=== PATIENT | female | born 1945 | race Caucasian/White ===

== ENCOUNTER 2024-09-10 08:28 | Outpatient (CLI) | payer MEDICARE | END 2024-09-10 23:59 | disposition home or self-care (01) | LOC: VAS 08:28 | PROVIDERS: ATTEND Podiatrist Foot & Ankle Surgery | DX: M72.2 Plantar fascial fibromatosis (principal); G57.52 Tarsal tunnel syndrome, left lower limb; M76.72 Peroneal tendinitis, left leg; R60.0 Localized edema; M25.472 Effusion, left ankle; M76.822 Posterior tibial tendinitis, left leg; M79.672 Pain in left foot; M77.42 Metatarsalgia, left foot; M20.42 Other hammer toe(s) (acquired), left foot; M79.622 Pain in left upper arm; N39.0 Urinary tract infection, site not specified; M79.671 Pain in right foot; G57.51 Tarsal tunnel syndrome, right lower limb | CPT/HCPCS: 93971 ==